=== PATIENT | female | born 1965 | race Caucasian/White ===

== ENCOUNTER 2021-07-15 06:39 | Day surgery (SDC) | payer MEDICAID ==
[~2021-07-15] VITALS: Ht 154.9 cm; Wt 68.0 kg
[2021-07-15] MEDS ORDERED: fentaNYL CITRATE/PF 100 MCG/2 ML AMP ONE (07:07)
[2021-07-15] MEDS ORDERED: MIDAZOLAM HCL 5 MG/5 ML VIAL ONE (07:07)
[2021-07-15 09:59] VITALS: BP_SYST 105
== END 2021-07-15 10:50 | disposition home or self-care (01) ==
LOC: SMU 06:39 → SDS 06:39 → EDSTATUS 09:00 → SDS 10:50
PROVIDERS: ATTEND Internal Medicine
DX: Z12.11 Encounter for screening for malignant neoplasm of colon (principal); K64.8 Other hemorrhoids; R10.13 Epigastric pain; K29.50 Unspecified chronic gastritis without bleeding; K44.9 Diaphragmatic hernia without obstruction or gangrene; I10 Essential (primary) hypertension; Z79.899 Other long term (current) drug therapy; Z20.822 Contact with and (suspected) exposure to COVID-19
CPT/HCPCS: 36415 ×2; 43239; 45378; 87081; 87426; 88305; 88312; 88313; 99152; 99153; G0378; J2250; J3010; U0003